=== PATIENT | male | born 1995 | race Hispanic/Latino ===

== ENCOUNTER 2023-12-29 09:11 | Day surgery (SDC) | payer BC ==
[~2023-12-29] VITALS: Ht 167.6 cm; Wt 102.1 kg
[~2023-12-29 09:11] MED LIST: BACTRIM DS1 TAB PO; BACTRIM1 TAB PO; NAFTIN2 % EX; NAPROSYN500 MG PO; ROSUVASTATIN CA20 MG PO; ULTRAM50 M1 PO
[2023-12-29] MEDS ORDERED: FAMOTIDINE 10MG/ML 2ML SDV IV ONE (09:19)
[2023-12-29] MEDS ORDERED: SODIUM CHLORIDE 0.9% 100 ML IV ONE (09:19)
[2023-12-29] MEDS ORDERED: ceFAZolin Sodium 2 GM/VIAL SDV ONE (09:19)
[2023-12-29] MEDS ORDERED: LACTATED RINGER'S 1,000 ML IV ONE (09:20)
[2023-12-29] MEDS ORDERED: BUPIVACAINE 133 MG/10 ML VIAL IJ ONE (10:19)
[2023-12-29] MEDS ORDERED: LIDOcaine HCl 1% (Local Anesth.) 20 ML VIAL ONE (10:19)
[2023-12-29] MEDS ORDERED: SODIUM CHLORIDE 1,000 ML BTL IR ONE (10:20)
[2023-12-29] MEDS ORDERED: STERILE WATER FOR IRRIGATION 1,000 ML BTL IR ONE (10:20)
[2023-12-29] MEDS ORDERED: BUPIVACAINE HCL PF 0.5 % 50 MG/10 ML SDV ONE (10:20)
[2023-12-29] MEDS ORDERED: SODIUM CHLORIDE 20 ML/VIAL SDV ONE (10:24)
[2023-12-29] MEDS ORDERED: PERCOCET 5/321 COMBO PO (11:29)
[2023-12-29] MEDS ORDERED: PERCOCET 5/325M1 TAB PO (11:36)
[2023-12-29] MEDS ORDERED: ACETAMINOPHEN 100 ML IV ONE (11:44)
[2023-12-29 12:13] VITALS: BP 120/89
[2023-12-29] MEDS ORDERED: LIDOCAINE HCL 2% 2ML SDV IV ONE (14:56)
[2023-12-29] MEDS ORDERED: PROPOFOL 200 MG/20 ML VIAL IV ONE (14:56)
[2023-12-29] MEDS ORDERED: MIDAZOLAM HCL 2 MG/2 ML VIAL IV ONE (14:56)
== END 2023-12-29 12:25 | disposition home or self-care (01) | DRG 572 ==
LOC: ORM 09:11
PROVIDERS: ATTEND Surgery
PROC: 0JB90ZZ Excision of Buttock Subcutaneous Tissue and Fascia, Open Approach (ICD-10-PCS; principal; 2023-12-29)
DX: L05.91 Pilonidal cyst without abscess (principal)
CPT/HCPCS: C9290; J0131; J0690